=== PATIENT | female | born 1995 | race Caucasian/White ===

== ENCOUNTER 2016-11-11 14:52 | Emergency (ER) | payer MEDICAID ==
[~2016-11-11] VITALS: Ht 167.6 cm; Wt 56.7 kg
[2016-11-11] MEDS ORDERED: LORAZEPAM INJ 2 MG/ML VIAL ONE (15:28)
[2016-11-11] MEDS ORDERED: HALOPERIDOL LACTATE INJ 5 MG/ML VIAL ONE (15:28)
[2016-11-11] MEDS ORDERED: diphenhydrAMINE HCL 50 MG/ML VIAL ONE (15:28)
[2016-11-11] MEDS ORDERED: LORAZEPAM INJ 2 MG/ML VIAL IV ONE (15:30)
[2016-11-11] MEDS ORDERED: LORAZEPAM INJ 2 MG/ML VIAL IM ONE (15:30)
[2016-11-11] MEDS ORDERED: HALOPERIDOL LACTATE INJ 5 MG/ML VIAL IM ONE (15:30)
[2016-11-11] MEDS ORDERED: IV NS 0.9% 1,000 ML BAG IV ONE (15:30)
[2016-11-11] MEDS ORDERED: diphenhydrAMINE HCL 50 MG/ML VIAL IM ONE (15:30)
[2016-11-11] MEDS ORDERED: IV NS 0.9% 1,000 ML ONE (15:35)
[2016-11-11] MEDS ORDERED: IV SET PRIMARY 1 EA INFUS.SET MC ONE (15:35)
--- NOTE | 2016-11-11 15:37 | NUR ---
RECEIVED PT AT THIS TIME. ON 2POINT RESTRAINTS D/T AGITATION AND ANXIETY. PT WAS ATTEMPTING TO RUN FROM ER, SCREAMING, YELLING, CLIMBING ON BED.
[2016-11-11 15:39] LABS: BASOPHILS # (AUTO) 0.1 /CMM (0.0-0.2); BASOPHILS % (AUTO) 0.6 % (0.0-2.0); EOSINOPHILS # (AUTO) 0.2 /CMM (0.0-0.7); EOSINOPHILS % (AUTO) 1.3 % (0.0-6.0); HEMATOCRIT 43 % (33-45); HEMOGLOBIN 13.8 g/dL (11.5-14.8); LYMPHOCYTES # (AUTO) 2.7 /CMM (0.8-4.8); LYMPHOCYTES % (AUTO) 21.5 % (20.0-44.0); MEAN CORPUSCULAR HEMOGLOBIN 30 PG (26.0-33.0); MEAN CORPUSCULAR HGB CONC 33 g/dl (31.0-36.0); MEAN CORPUSCULAR VOLUME 93 fL (82-100); MONOCYTES # (AUTO) 1.2 /CMM (0.1-1.30); MONOCYTES % (AUTO) 9.3 % (2.0-12.0); NEUTROPHILS # (AUTO) 8.5 /CMM (1.8-8.9); NEUTROPHILS % (AUTO) 67.3 % (43.0-81.0); PLATELET COUNT (AUTO) 287 /CMM (150-450); RDW COEFFICIENT OF VARIATION 13.9 (11.5-15.0); RED BLOOD CELL COUNT(AUTO) 4.56 MIL/uL (4.0-5.2); WHITE BLOOD COUNT (AUTO) 12.7 K/uL (4.3-11.0)
[2016-11-11 15:47] LABS: CALCIUM, SERUM 9.1 mg/dL (8.5-10.1); CARBON DIOXIDE 25 mmol/L (21-32); CHLORIDE 105 mmol/L (98-107); CREATININE 0.9 mg/dL (0.6-1.3); GLUCOSE 84 mg/dL (74-106); POTASSIUM 3.7 mmol/L (3.5-5.1); SODIUM SERUM 142 mmol/L (136-145); UREA NITROGEN, BLOOD 8 mg/dL (7-18)
[2016-11-11 16:00] LABS: ALANINE AMINOTRANSFERASE 12 U/L (12-78); ALBUMIN 4.7 g/dL (3.4-5.0); ALCOHOL, BLOOD < 3 mg/dL (0-0); ALKALINE PHOSPHATASE 67 U/L (46-116); ASPARTATE AMINOTRANSFERASE 17 U/L (15-37); BILIRUBIN,DIRECT 0.1 mg/dL (0.0-0.2); BILIRUBIN,TOTAL 0.6 mg/dL (0.2-1.0); TOTAL PROTEIN, SERUM 7.8 g/dL (6.4-8.2)
[2016-11-11 16:01] LABS: SALICYLATE 1.8 mg/dL (2.8-20.0)
[2016-11-11 16:02] LABS: ACETAMINOPHEN 0 ug/ml (10-30)
--- NOTE | 2016-11-11 16:30 | NUR ---
IN AND OUT CATH PERFORMED FOR NO URINE. TOLERATED WELL.
--- NOTE | 2016-11-11 16:53 | NUR ---
CHERYL RN AT BEDSIDE FOR PSYCH EVAL
[2016-11-11 17:29] LABS: PREGNANCY TEST URINE QUAL NEGATIVE (NEGATIVE)
[2016-11-11 17:33] LABS: APPEARANCE,URINE Clear (CLEAR); BILIRUBIN,URINE Negative (NEGATIVE); BLOOD, URINE Trace-lysed Ery/uL (NEGATIVE); COLOR,URINE Yellow (YELLOW); KETONES,URINE Negative (NEGATIVE); LEUKOCYTE ESTERASE ,URINE Negative (NEGATIVE); NITRITE, URINE Negative (NEGATIVE); PROTEIN,URINE 30 mg/dl (NEGATIVE); UGLUCOSE Negative (NEGATIVE); UROBILINOGEN,URINE 0.2 EU/dL (0.2)
[2016-11-11] MEDS ORDERED: LITH300T3 PO (17:46)
[2016-11-11] MEDS ORDERED: QUET300T2 PO (17:46)
[2016-11-11] MEDS ORDERED: GABA-534 PO (17:46)
[2016-11-11 17:53] LABS: BACTERIA,URINE Few /HPF (None Seen); SQUAMOUS EPITHELIAL CELL,UR Few /HPF (None Seen); WBC,URINE 0-2 /HPF (0-3)
--- NOTE | 2016-11-11 18:00 | NUR ---
pt remains sedated but easily arousable. NAD noted. restraints released. pt provided with food and water.
--- NOTE | 2016-11-11 19:50 | NUR ---
IV removed. Catheter intact and site benign. Pressure and 4x4 applied to site. No bleeding noted. Patient discharged to home in stable condition. Written and verbal after care instructions given. Patient verbalizes understanding of instruction. ambulatory with steady gait. a/ox4. pt's boyfriend agrees to take pt home and feels he can adequately care for her at this time.
[2016-11-11 19:51] VITALS: BP 128/81
== END 2016-11-11 19:52 | disposition home or self-care (01) ==
LOC: ER 14:54
DX: F99 Mental disorder, not otherwise specified (principal); F12.90 Cannabis use, unspecified, uncomplicated; F20.9 Schizophrenia, unspecified; R00.0 Tachycardia, unspecified; E86.0 Dehydration; R45.1 Restlessness and agitation
CPT/HCPCS: 36415; 51701; 80048; 80076; 80305; 80329; 81001; 84703 ×2; 85025; 93005; 96361; 96374; 96375; 99285; A4606; G0480 ×2; J1200; J1630; J2060; J7030; Z7610; 81000-TC